=== PATIENT | male | born 1980 | race Hispanic/Latino ===

== ENCOUNTER 2019-01-30 06:39 | Emergency (ER) | payer BC ==
[~2019-01-30] VITALS: Ht 182.9 cm; Wt 95.3 kg
[2019-01-30] MEDS ORDERED: TETANUS/DIPHTHERIA TOX ADULT 0.5 ML SYR IM ONE (06:45)
--- NOTE | 2019-01-30 07:22 | Diagnostic Imaging Report ---
HAND 3+ VIEWS LEFT - 3 views HISTORY: Laceration of the left Index finger. COMPARISON: None available. FINDINGS: Bones: No acute displaced fracture. Osseous alignment is within normal limits. Joints: The joint spaces are well-maintained. Soft tissues: No significant radiopaque foreign body is identified. A few punctate metallic densities projected on the palmar aspect of the hand second digit likely to represent artifact. IMPRESSION: No acute osseous abnormality. Signed by: Dr. Beryl Posey M.D. on 01/30/2019 7:19 AM
== END 2019-01-30 08:10 | disposition home or self-care (01) ==
LOC: ER 06:39
DX: S61.211A Laceration without foreign body of left index finger without damage to nail, initial encounter (principal); Z23 Encounter for immunization; W26.0XXA Contact with knife, initial encounter; Y93.G3 Activity, cooking and baking; Y92.000 Kitchen of unspecified non-institutional (private) residence as the place of occurrence of the external cause
CPT/HCPCS: 90471; 90714; 99284